=== PATIENT | female | born 1935 | race Caucasian/White ===

== ENCOUNTER 2022-05-28 15:18 | Emergency (ER) | payer OTHER ==
[~2022-05-28] VITALS: Ht 152.4 cm; Wt 39.0 kg
[2022-05-28 15:23] VITALS: BP_SYST 167
--- NOTE | 2022-05-28 20:00 | NUR ---
Called out patient's name in the waiting room several times - no answer.
--- NOTE | 2022-05-28 20:15 | NUR ---
Called out patient's name several times in the waiting room - no answer.
--- NOTE | 2022-05-28 22:00 | NUR ---
Patient eloped from facility. No further treatment provided. ER MD aware.
== END 2022-05-28 22:00 | disposition left against medical advice (07) ==
LOC: SED 15:18
DX: R53.1 Weakness (principal); R19.7 Diarrhea, unspecified; E11.9 Type 2 diabetes mellitus without complications; I10 Essential (primary) hypertension; Z79.899 Other long term (current) drug therapy
CPT/HCPCS: 99281